=== PATIENT | male | born 1935 | race Caucasian/White ===

== ENCOUNTER 2019-09-19 00:52 | Outpatient (CLI) | payer MEDICARE, SELFPAY ==
[2019-09-19 19:08] LABS: SARS-CoV-2 RNA PCR Negative
== END 2019-09-19 00:53 | disposition home or self-care (01) ==
LOC: ANHCOVIDDT 00:52
PROVIDERS: PCP Family Medicine Adolescent Medicine; Visit Provider Internal Medicine Gastroenterology
DX: Z01.812 Encounter for preprocedural laboratory examination (principal); Z11.59 Encounter for screening for other viral diseases
CPT/HCPCS: 87635; C9803; U0003

== ENCOUNTER 2019-09-21 01:31 | Day surgery (SDC) | payer MEDICARE, SELFPAY ==
[2019-09-14 12:25] VITALS: BMI 30.5
[2019-09-21 06:59] VITALS: BP 126/64; PULSE 64; RESP 18; TEMP 36.7; O2SAT 98; BMI 31.0
[2019-09-21] MEDS: LACTATED RINGERS 1,000 ML 150 ML IV CONT (07:13)
--- NOTE | 2019-09-21 07:29 | WPDANESEPPF ---
Anes - Initial Pre Proc Eval Procedure: Operation Date: 09/21/19 08:00 Proposed Procedures p Screening Colonoscopy - Stiven Prince MD Date/Time: 09/21/19 07:29 Surgeon: Stiven Prince MD Pre Op Diagnosis: hx colon polyps, faily hx colon CA Patient Data Age: 84 Gender: M Height: 6 ft 1 in Weight: 106.7 kg Last Vital Signs Temp 36.7 C 09/21/19 06:59 Pulse 64 09/21/19 06:59 Resp 18 09/21/19 06:59 BP 126/64 09/21/19 06:59 Pulse Ox 98 09/21/19 06:59 Allergies Allergy/AdvReac Type Severity Reaction Status Date / Time No Known Allergies Allergy Verified 09/21/19 06:56 Home Medications Medication Instructions Recorded Confirmed Type alpha lipoic acid (bulk) [Lipoic ea MISCELLANEOUS 09/14/19 History Acid] ascorbic acid (vitamin C) 1 g PO DAILY 09/14/19 09/21/19 History coenzyme Q10 [CoQ-10] 100 mg PO DAILY 09/14/19 09/21/19 History furosemide 40 mg PO DAILY 09/14/19 09/21/19 History indapamide 2.5 mg PO DAILY 09/14/19 09/21/19 History magnesium oxide-Mg AA chelate cap PO 09/14/19 History [Magnesium (oxide/AA chelate)] mecobalamin (vitamin B12) mcg PO 09/14/19 History potassium chloride 10 meq PO DAILY 09/14/19 09/21/19 History pregabalin 50 mg PO TID 09/14/19 09/21/19 History pyridoxine (vitamin B6) 250 mg PO DAILY 09/14/19 09/21/19 History trazodone 50 mg PO HS 09/14/19 09/21/19 History Patient hx anesthesia problems: none Family hx anesthesia problems: none PMFSH Past Medical History Medical History Anxiety Bladder cancer Prostate cancer Family History Family History Father Family history of malignant neoplasm Other Diabetes mellitus Hypertension Social History Social History Smoking status: Never smoker Alcohol intake: current Anes - Eval Final PreProcedure Day of Procedure 09/21/19 07:29 Patient weight: obese Heart: regular rate and rhythm Lungs: clear to auscultation Airway: Mallampati scale class II Neurological: alert and oriented Last oral intake: >/= 8 hours ASA classification: III Emergent: no Anesthetic plan: proceed Anesthesia type and monitoring: general GIVS and standard monitoring Informed Consent: The patient's anesthetic plan and its attendant risks and benefits were discussed with the patient/family/POA. Questions were solicited and answers provided to the satisfaction of the patient/family/POA.
--- NOTE | 2019-09-21 07:57 | WPDGICN ---
Assessment and Plan Assessment and plan (1) History of colon polyps: Code(s): Z86.010 - Personal history of colonic polyps Status: Acute Assessment and Plan: Because of patient's own prior history of colon polyps as well as family history of colon cancer in his mother screening colonoscopy is advised now and 5 years if he remains healthy. (2) Family history of colon cancer in mother: Code(s): Z80.0 - Family history of malignant neoplasm of digestive organs Status: Acute GI Consult Note Consult date/time: 09/21/19 07:57 HPI: Trevor Moctezuma is a 84 year old male seen in evaluation at the request of Dr Welch. Patient presents for screening colonoscopy. His current weight appetite bowel movements are normal. He does have a prior history of colon polyps. Family history is significant that his mother has had colon cancer. Patient presents today for colonoscopy. He denies any blood in his stools. He denies abdominal pain. Review of Systems Review of Systems: All systems reviewed & are unremarkable except as noted in HPI and below PMFSH Past Medical History Medical History Anxiety Bladder cancer Prostate cancer Family History Family History Father Family history of malignant neoplasm Other Diabetes mellitus Hypertension Social History Social History Smoking status: Never smoker Alcohol intake: current Meds Home Medications and Allergies Home Medications Medication Instructions Recorded Confirmed Type alpha lipoic acid (bulk) [Lipoic ea MISCELLANEOUS 09/14/19 History Acid] ascorbic acid (vitamin C) 1 g PO DAILY 09/14/19 09/21/19 History coenzyme Q10 [CoQ-10] 100 mg PO DAILY 09/14/19 09/21/19 History furosemide 40 mg PO DAILY 09/14/19 09/21/19 History indapamide 2.5 mg PO DAILY 09/14/19 09/21/19 History magnesium oxide-Mg AA chelate cap PO 09/14/19 History [Magnesium (oxide/AA chelate)] mecobalamin (vitamin B12) mcg PO 09/14/19 History potassium chloride 10 meq PO DAILY 09/14/19 09/21/19 History pregabalin 50 mg PO TID 09/14/19 09/21/19 History pyridoxine (vitamin B6) 250 mg PO DAILY 09/14/19 09/21/19 History trazodone 50 mg PO HS 09/14/19 09/21/19 History Allergies Allergy/AdvReac Type Severity Reaction Status Date / Time No Known Allergies Allergy Verified 09/21/19 06:56 Vital Signs Vital Signs - 24 hr 09/21/19 06:59 Temperature 98.0 F Pulse Rate 64 Respiratory Rate 18 Blood Pressure 126/64 Pulse Oximetry 98 Exam Narrative: Exam Narrative: Physical exam reveals patient to be alert. Vital signs stable. HEENT exam unremarkable. Lungs are clear to auscultation and to percussion. Heart is without murmur or extra sounds. Abdominal exam bowel sounds are present soft nontender with no organomegaly. Digital external rectal exam is normal.
[2019-09-21 08:32] VITALS: BP 104/60; PULSE 51; RESP 18; O2SAT 97
[2019-09-21 08:42] VITALS: BP 121/67; PULSE 55; RESP 18; O2SAT 97
[2019-09-21 08:52] VITALS: BP 129/76; PULSE 53; RESP 18; O2SAT 97
== END 2019-09-21 09:30 | disposition home or self-care (01) ==
PROVIDERS: PCP Family Medicine Adolescent Medicine; Visit Provider Internal Medicine Gastroenterology
PROC: 0DJD8ZZ Inspection of Lower Intestinal Tract, Via Natural or Artificial Opening Endoscopic (ICD-10-PCS; CPT 45378; principal; 2019-09-21 08:00)
DX: Z12.11 Encounter for screening for malignant neoplasm of colon (principal); D12.2 Benign neoplasm of ascending colon; K63.5 Polyp of colon; K57.30 Diverticulosis of large intestine without perforation or abscess without bleeding; K64.8 Other hemorrhoids; Z80.0 Family history of malignant neoplasm of digestive organs; F41.9 Anxiety disorder, unspecified; Z85.46 Personal history of malignant neoplasm of prostate; Z85.51 Personal history of malignant neoplasm of bladder; E66.9 Obesity, unspecified; Z68.31 Body mass index [BMI] 31.0-31.9, adult
CPT/HCPCS: 45385; 87635; 88305; C9803; J2001; J2704; J7120; U0003

== ENCOUNTER → 2020-10-29 03:30 | Outpatient (CLI) | payer MEDICARE, SELFPAY ==
[2020-10-29 19:41] LABS: SARS-CoV-2 RNA PCR Positive
== END ==
PROVIDERS: PCP Family Medicine Adolescent Medicine; Visit Provider Physician Assistant
DX: U07.1 COVID-19 (principal)
CPT/HCPCS: C9803; U0003; U0005

== ENCOUNTER 2020-11-07 11:56 | Observation (INO) | payer MEDICARE, SELFPAY ==
[2020-11-07] VITALS (25 sets, daily range): BP systolic 105–147; BP diastolic 57–80; PULSE 58–88; RESP 14–20; TEMP 36.4–36.9; O2SAT 93–100; BMI 28.5
--- NOTE | ~2020-11-07 | CT_ITS ---
EXAMINATION: CTA chest PE protocol DATE: 11/07/2020 14:29 INDICATION: Shortness of breath. Elevated d-dimer. TECHNIQUE: Computed tomography (CT) pulmonary angiogram of the chest was performed with 100 mL Omnipa que-350 intravenous contrast. Additional 3D reconstructions utilizing coronal maximum intensity proje ction (MIP) were performed. Automated exposure control and iterative reconstruction technique were em ployed. The dose-length product was 618.31 mGy-cm. COMPARISON: None FINDINGS: Excellent contrast opacification of the pulmonary arteries. There is mild streak artifact from dense contrast in the superior vena cava and right atrium. Mild scattered respiratory motion artifact which does not significantly limit evaluation. No pulmonary embolism. Mild emphysema. Mild dependent atele ctasis in bilateral lower lobes. Additional mild linear discoid atelectasis scattered throughout both lungs. Small calcified nodules along the right minor and major fissures consistent with old granulom atous disease. No pneumonia, pulmonary edema or pleural effusion. Heart size is normal. No pericardia l effusion. Atherosclerotic coronary artery calcification. Thoracic aorta is normal in caliber with n o dissection. No pathologically enlarged thoracic lymphadenopathy. Small sliding-type hiatal hernia. Chronic T7 compression fracture with moderate thoracic spondylosis. Spinal stimulator lead at the pos terior aspect of the central canal the midthoracic spine at the level of T6-T8. IMPRESSION: 1. No pulmonary embolism. 2. Mild dependent and scattered discoid atelectasis throughout both lungs. No other acute cardiopulmo nary disease. Reviewed, dictated and finalized at location A. IMPRESSION: 1. No pulmonary embolism. 2. Mild dependent and scattered discoid atelectasis throughout both lungs. No o ther acute cardiopulmonary disease.
--- NOTE | ~2020-11-07 | CT_ITS ---
EXAMINATION: CT brain wo con INDICATION: Dizziness COMPARISON: None TECHNIQUE: Standard unenhanced head CT. The dose-length product (DLP) was 681.00 mGy-cm. The mA was a djusted according to patient size. Iterative reconstruction technique was employed. FINDINGS: There is no acute intraparenchymal hemorrhage. No evidence of acute infarction. There is an approximately 1.5 cm area of calcification left cerebellum. There is mild periventricular and subcor tical hypodensity probably related to small vessel ischemic disease. There is mild prominence of the sulci and ventricles related to cerebral atrophy. Intracranial calcified cerebral atherosclerosis is noted. There are no extra-axial collections. There is no mass effect or midline shift. Changes in the globes are likely from ocular lens surgery. There is mild mucosal thickening of the paranasal sinuse s. IMPRESSION: 1. Calcification in the left cerebellum which could be dystrophic possibly related to a cavernoma. Du e to presence of neurostimulator device, further evaluation by CT of the brain with contrast is recom mended. 2. Age related findings. Reviewed, dictated and finalized at location A. IMPRESSION: 1. Calcification in the left cerebellum which could be dystrophic possibly rela real to a cavernoma. Due to presence of neurostimulator device, further evaluati on by CT of the brain with contrast is recommended. 2. Age related findings.
--- NOTE | ~2020-11-07 | XR_ITS ---
EXAMINATION: XR chest 1V portable INDICATION: Shortness of breath, COVID positive TECHNIQUE: Portable AP chest at 1238 hours COMPARISON: None available FINDINGS: There are minimal airspace opacities of the lung bases. No pleural effusion or pneumothorax is identified. The cardiomediastinal silhouette is normal. Neurostimulator leads project in the midt horacic spine. IMPRESSION: 1. Minimal airspace opacities of the lung bases, consistent with atelectasis versus pneumonia. Reviewed, dictated and finalized at location A. IMPRESSION: 1. Minimal airspace opacities of the lung bases, consistent with atelectasis ve rsus pneumonia.
--- NOTE | 2020-11-07 12:06 | ECG_ITS ---
Measurements Intervals [place] Rate: 84 P: 27 NM: 222 QRS: -30 QRSD: 133 T: 16 QT: 393 QTc: 466 Interpretive Statements SINUS RHYTHM WITH FIRST DEGREE AV BLOCK RIGHT BUNDLE BRANCH BLOCK BASELINE ARTIFACT- I, II, III, AVR, AVL, AVF, V3-V6 ABNORMAL ECG Electronically Signed On 11-07-2020 14:24:12 CDT by Guy Oates D.O.
[2020-11-07 12:28] LABS: Basophils Percent Auto 0.5 % (0.2-1.2); Eosinophils Percent Auto 0.2 % (0-4.4); Hematocrit 37.2 % (42.0-52.0); Hemoglobin 12.4 g/dL (14.0-18.0); Immature Granulocyte Absolute 0.17 K/mm3 (0.00-0.031); Immature Granulocyte Percent A 4.1 % (0-0.5); Lymphocytes Absolute Auto 0.69 K/mm3 (0.9-3.2); Lymphocytes Percent Auto 16.6 % (18.3-44.2); Mean Corpuscular HGB Conc 33.3 g/dl (32-36); Mean Corpuscular Volume 95.9 fl (80-100); Mean Platelet Volume 9.8 fl (7.4-10.4); Monocytes Absolute Auto 0.4 K/mm3 (0.1-0.6); Monocytes Percent Auto 8.4 % (2.6-8.5); Neutrophils Absolute Auto 2.9 K/mm3 (1.3-6.7); Neutrophils Percent Auto 70.2 % (45.5-73.1); Platelet Count Result 135 k/mm3 (150-375); Red Blood Count 3.88 M/mm3 (4.6-6.20); Red Cell Distribution Width 12.6 % (11.5-14.5); White Blood Count 4.2 K/mm3 (4.5-10.0)
[2020-11-07 12:51] LABS: Anion Gap 14 mmol/L (8-16); Blood Urea Nitrogen 17 mg/dL (9-20); Carbon Dioxide 24 mmol/L (22-30); Chloride 97 mmol/L (98-107); Estimated CRCL calculation 57 ml/min; Estimated Glomerular Filt Rate > 60; Glucose 104 mg/dL (65-110); Potassium 4.1 mmol/L (3.4-5.0); Sodium 135 mmol/L (137-145)
--- NOTE | 2020-11-07 12:59 | ED.SOB ---
HPI - SOB/Dyspnea General Chief Complaint: Shortness of Breath/Dyspnea Stated Complaint: Dizzy/Feels terrible COVID + 2 weeks ago Time Seen by Provider: 11/07/20 12:41 Source: patient Mode of arrival: ambulatory Limitations: no limitations History of Present Illness HPI Narrative: Patient is an 85-year-old male complain of left-sided chest pain, 6 out of 10, sharp, nonradiating accompanied by dizziness started today. Patient denies any shortness of breath, abdominal pain, nausea, vomiting, diaphoresis, fever or chills. Patient states that he was recently cleared from Covid, was diagnosed more than a week ago. Patient does admit to having his 2 Pfizer vaccine back in April and May. Related Data Home Medications Medication Instructions Recorded Confirmed alpha lipoic acid (bulk) [Lipoic ea MISCELLANEOUS 09/14/19 Acid] ascorbic acid (vitamin C) 1 g PO DAILY 09/14/19 09/21/19 coenzyme Q10 [CoQ-10] 100 mg PO DAILY 09/14/19 09/21/19 furosemide 40 mg PO DAILY 09/14/19 09/21/19 indapamide 2.5 mg PO DAILY 09/14/19 09/21/19 magnesium oxide-Mg AA chelate cap PO 09/14/19 [Magnesium (oxide/AA chelate)] mecobalamin (vitamin B12) mcg PO 09/14/19 potassium chloride 10 meq PO DAILY 09/14/19 09/21/19 pregabalin 50 mg PO TID 09/14/19 09/21/19 pyridoxine (vitamin B6) 250 mg PO DAILY 09/14/19 09/21/19 trazodone 50 mg PO HS 09/14/19 09/21/19 Allergies Allergy/AdvReac Type Severity Reaction Status Date / Time No Known Allergies Allergy Verified 11/07/20 13:53 Review of Systems Review of Systems: All systems reviewed & are unremarkable except as noted in HPI and below Constitutional: Constitutional: Denies body ache(s), Denies chills, Denies excessive sweating, Denies fever(s), Denies headache(s), Denies lethargy, Denies malaise and Denies weight loss Eyes: Eyes: Denies blurry vision, Denies change in vision and Denies loss of vision ENT: Denies dizziness, Denies ear discharge, Denies headache(s), Denies lip swelling, Denies epistaxis, Denies nasal congestion, Denies neck pain, Denies throat swelling and Denies tongue swelling Cardiovascular: Cardiovascular: Denies diaphoresis, Denies rapid heart rate, Denies edema, Denies irregular heart rhythm, Denies lightheadedness and Denies palpitations Respiratory: Respiratory: Denies chest congestion and Denies hemoptysis Gastrointestinal: Gastrointestinal: Denies abdominal pain, Denies melena, Denies hematochezia, Denies diarrhea, Denies nausea, Denies vomiting and Denies hematemesis Musculoskeletal: Musculoskeletal: Denies abnormal gait, Denies deformity, Denies joint swelling, Denies limited range of motion, Denies neck pain and Denies numbness Neurologic: Denies Abnormal speech present, Denies abnormal gait, Denies confusion, Denies headache(s), Denies focal weakness, Denies loss of vision, Denies numbness, Denies Other visual disturbances, Denies Sensory deficit (Neuro) and Denies weakness Psychiatric: Psychiatric: Denies confusion, Denies depression, Denies auditory hallucinations, Denies homicidal ideation and Denies suicidal ideation Endocrine: Endocrine: Denies cold intolerance, Denies excessive sweating, Denies fatigue, Denies heat intolerance and Denies palpitations Hematologic/Lymphatic: Hematologic/Lymphatic: Denies easy bleeding and Denies easy bruising Allergic/Immunologic: Allergic/Immunologic: Denies lip swelling, Denies throat swelling and Denies tongue swelling PMFSH Past Medical History Medical History (Updated 11/07/20 @ 15:36 by Joey Tucker MD) Anxiety Bladder cancer Prostate cancer Family History Family History Father Family history of malignant neoplasm Other Diabetes mellitus Hypertension Social History Social History Smoking status: Never smoker Alcohol intake: current Exam Const: General: cooperative, comfortable, no
[2020-11-07 13:46] LABS: D Dimer 0.54 ug/mL (<0.48)
[2020-11-07] MEDS: ASPIRIN 81 MG CHEWABLE TABLET 324 MG PO (14:08)
[2020-11-07 14:21] LABS: NT Pro B Type Natriuretic Pept 374 pg/mL (5-100); Troponin I < 0.012 ng/mL (0.000-0.034)
--- NOTE | 2020-11-07 18:01 | PC.NURSE ---
Dinner tray ordered for pt.
--- NOTE | 2020-11-07 19:55 | PM.IMHP ---
H&P: HPI History of Present Illness Date/Time: 11/07/20 19:55 Chief Complaint: Chest pain Narrative: This is an 85-year-old male with past medical history significant for hypertension, generalized anxiety bladder cancer, prostate cancer, COVID tested positive in the middle of October, patient is the main caregiver of his which is end-stage Alzheimer's dementia. Patient presented today to the emergency room due to pain on the left side of her his rib cage worse with inspiration a states that it feels tight when he takes a deep breath he has had some cough he has been getting increasingly short of breath with exertion and has been having generalized malaise his appetite is good though he denies any PND any orthopnea any leg swelling, any syncope, or near syncope ,no palpitations, chest pain is nonradiating ,he denies any fevers, chills or rigors ,no nausea ,no vomiting just had a diarrhea. Preliminary workup was significant for chest x-ray with infiltrates at the lung bases. Rest of preliminary workup has been essentially nonrevealing including CT angiogram negative for pulmonary embolism. Review of Systems Review of Systems: Shortness of breath at exertion, fatigue, left-sided chest pain Constitutional: Constitutional: Denies chills, Reports fatigue, Denies fever(s), Reports lethargy, Reports malaise, Denies night sweats and Reports weakness Eyes: Eyes: Denies change in vision ENT: Denies dysphagia, Denies dizziness, Denies nasal congestion, Denies nasal discharge, Denies nasal obstruction and Denies odynophagia Cardiovascular: Cardiovascular: Denies irregular heart rhythm, Denies claudication, Denies leg edema, Denies radiating jaw, neck or arm pain, Denies palpitations, Reports dyspnea and Reports dyspnea on exertion Respiratory: Respiratory: Denies change in phlegm color, Denies cough, Denies excessive phlegm production, Reports dyspnea and Denies wheezing Gastrointestinal: Gastrointestinal: Denies abdominal pain, Reports diarrhea, Denies nausea and Denies vomiting Genitourinary: Genitourinary: Reports no additional male genitourinary complaints Musculoskeletal: Musculoskeletal: Reports no additional musculoskeletal complaints Integumentary/Breasts: Skin/Breast: Reports system reviewed and no additional complaints, except as docu Neurologic: Reports system reviewed and no additional complaints, except as documented Psychiatric: Psychiatric: Reports no additional psychiatric complaints Endocrine: Endocrine: Reports no additional endocrine complaints Hematologic/Lymphatic: Hematologic/Lymphatic: Reports no additional hematologic/lymphatic complaints Allergic/Immunologic: Allergic/Immunologic: Reports no additional allergic/immunologic complaints [facility] Past Medical History Medical History (Updated 11/08/20 @ 01:03 by Andriy Quinones MD) Anxiety Bladder cancer Prostate cancer Family History Family History Father Family history of malignant neoplasm Other Diabetes mellitus Hypertension Social History Social History Smoking status: Never smoker Alcohol intake: current Drinks per week: 6 Substance use: never Substance use type: does not use Spiritual care concerns: No Meds Home Medications and Allergies Home Medications Medication Instructions Recorded Confirmed Type ascorbic acid (vitamin C) 5,000 mg PO DAILY 09/14/19 11/07/20 History coenzyme Q10 [CoQ-10] 200 mg PO DAILY 09/14/19 11/07/20 History furosemide 40 mg PO DAILY 09/14/19 11/07/20 History mecobalamin (vitamin B12) 5,000 mcg PO DAILY 09/14/19 11/07/20 History potassium chloride 30 meq PO BID 09/14/19 11/07/20 History pregabalin 50 mg PO TID 09/14/19 11/07/20 History pyridoxine (vitamin B6) 250 mg PO DAILY 09/14/19 11/07/20 History trazodone 50 mg PO HS 09/14/19 11/07/20 History alpha lipoic acid [Lipoic Acid] 600 mg PO TI
--- NOTE | 2020-11-07 20:17 | PC.NURSE ---
This patient, Trevor Vivek Pacewic, was admitted to IMU Room 212-. Patient/family oriented to hospital policies and general routines including ID bracelet, bed and alarms, visiting hours, pain management, procedures, bathroom and other care routines, personal items, smoking policy, room service/diet, and visiting hours. Information on how to activate the Rapid Response Team has been discussed. Patient/Family are encouraged to report perceived risks to care and to ask questions if they do not understand what they are told or what they should do.
[2020-11-07 20:43] LABS: Troponin I < 0.012 ng/mL (0.000-0.034)
[2020-11-07 23:53] LABS: Troponin I < 0.012 ng/mL (0.000-0.034)
[2020-11-08] VITALS (17 sets, daily range): BP systolic 90–120; BP diastolic 43–63; PULSE 57–70; RESP 16–20; TEMP 36.3–36.4; O2SAT 94–100
[2020-11-08] MEDS: traZODone HCL 50 MG TABLET PO (01:13)
[2020-11-08] MEDS: POTASSIUM CHLORIDE 10 MEQ TABLET.ER 30 MEQ PO (08:21)
[2020-11-08] MEDS: PYRIDOXINE HCL 50 MG TABLET 250 MG PO (08:21)
[2020-11-08] MEDS: MAGNESIUM OXIDE 400 MG TABLET PO (08:21)
[2020-11-08] MEDS: CYANOCOBALAMIN 1,000 MCG TABLET 5000 MCG PO (08:21)
[2020-11-08] MEDS: HEPARIN SODIUM 5,000 UNITS/ML VIAL 5000 UNITS SUB-Q (08:21)
[2020-11-08] MEDS: ASCORBIC ACID 500 MG TABLET 5000 MG PO (08:22)
[2020-11-08] MEDS: PREGABALIN (*CRX) 50 MG CAPSULE PO ×2 (08:24→14:06)
[2020-11-08] MEDS: SODIUM CHLORIDE 0.9% IV 500 ML IV CONT (10:51)
[2020-11-08 13:07] LABS: Magnesium 2.1 mg/dL (1.6-2.3)
[2020-11-08] MEDS: ALBUTEROL SULFATE NEB 2.5 MG/0.5 ML INH INHALATION (14:22)
--- NOTE | 2020-11-08 15:04 | PM.DS ---
DS: Admitting Diagnosis Admitting Diagnosis Lightheadedness/fatigue DS: Discharge Diagnosis Discharge Diagnosis (1) COVID-19: Code(s): U07.1 - COVID-19 Status: Acute Assessment and Plan: The patient is an 85-year-old man with a history of hypertension, bladder cancer, prostate cancer, who presented emergency room with generalized weakness and lightheadedness prior to arrival. The patient was diagnosed with COVID-19 on October 30, 2019 and he has been quarantined in his house during that amount of time. He states he feels very fatigued because he has been helping his who has end-stage Alzheimer's in usually they have a home health agency come daily to help him. But since the been in quarantine he has had to do all himself. Then yesterday he went to stand up and felt lightheaded like he was going to pass out. His daughter was concerned and told him to come to the emergency room for further evaluation and monitoring. Initial labs showed afebrile, non tachycardic, normal respirations and oxygenation on room air, stable blood pressure 128/66. Initial labs show mild pancytopenia, most likely secondary to acute COVID infection. Elevated D-dimer. Slight hyponatremia at 135. BNP normal at 374 given his age. Troponin negative x3. Normal magnesium level. Chest x-ray showed minimal airspace opacity of the lung bases, consistent with atelectasis versus pneumonia. CT head showed Calcification in the left cerebellum which could be dystrophic possibly related to a cavernoma. Due to presence of neurostimulator device, further evaluation by CT of the brain with contrast is recommended. Age related findings. CTA chest showed no pulmonary embolism, Mild dependent and scattered discoid atelectasis throughout both lungs. No other acute cardiopulmonary disease. The patient was admitted to hospital for further evaluation observation. Due to his lightheadedness I checked his orthostatics which showed low blood pressure. I gave him 500 cc of IV fluids with improvement of his symptoms. The patient had been walking around, asymptomatic and otherwise stable for discharge at this time. I will have him hold his triamterene hydrochlorothiazide diuretic because of his low blood pressures and dehydration. Otherwise check his blood pressure twice daily. Follow-up primary care within 1 week. Return to ER warnings given. Patient understands agrees the plan all questions answered. (2) Generalized weakness: Code(s): R53.1 - Weakness Status: Acute (3) HTN (hypertension): Code(s): I10 - Essential (primary) hypertension Status: Acute (4) Lightheadedness: Code(s): R42 - Dizziness and giddiness Status: Acute DS: Summary Hospital Course Hospital Course: See above Status at Discharge Cognitive/behavioral status at discharge: Stable, improved. Time Spent with Patient Time attestation: Total time spent providing and/or coordinating discharge services: 42 Time spent: Greater than 30 minutes Exam Narrative: General: 85-year-old man laying in bed resting. Easily arousable and sits up to talk to me during examination. Appears comfortable. In no acute distress. Skin: No jaundice or cyanosis. Good skin turgor. Neck: Full range of motion. Supple. Respiratory: Lungs are clear to auscultation bilaterally. No bony chest wall tenderness. Cardiovascular: The heart has a regular rate and rhythm without murmur. Lower extremities: No lower extremity edema. Distal pulses are easily palpated. No calf tenderness to palpation. Gastrointestinal: The abdomen is soft, nontender and nondistended with active bowel sounds. Psychiatric: Lucid and oriented. Memory intact. Neurologic: No focal deficits. Speech is clear. No facial drooping. DS: Data Data Completed and Pending Labs on day of discharge: Labs from last 24 hours 11/08/20 11/07/20 11/07/20 10:39 2
== END 2020-11-08 15:48 | disposition home or self-care (01) ==
LOC: ANHED 16:26 → ANHIMU 17:16
PROVIDERS: Physician Assistant; Admitting Provider Internal Medicine; Emergency Provider Emergency Medicine; PCP Family Medicine Adolescent Medicine; Visit Provider Internal Medicine
DX: U07.1 COVID-19 (principal); J12.82 Pneumonia due to coronavirus disease 2019; R53.1 Weakness; R42 Dizziness and giddiness; I10 Essential (primary) hypertension; F41.1 Generalized anxiety disorder; Z85.46 Personal history of malignant neoplasm of prostate; Z85.51 Personal history of malignant neoplasm of bladder
CPT/HCPCS: 36415; 70450; 71045; 71275; 80048; 83735; 83880; 84484; 85025; 85380; 87040; 93005; 94640; 96361; 96365; 96367; 96372; 97161; 99285; A9270; G0378; J0456; J0696; J1644; J7040; Q9967

== ENCOUNTER 2021-02-06 20:57 | Emergency (ER) | payer MEDICARE, SELFPAY ==
[2021-02-06 20:56] VITALS: BP 183/101; PULSE 45; RESP 18; O2SAT 88
--- NOTE | 2021-02-06 20:56 | PC.NURSE ---
2055- Time of Arrival, BP 183/101. Pt vomiting, complaining of 10/10 chest pain 2099- 8 mg Zofran administered per ERP Tucker VRBO. 2101- PEA recognized, BVM respirations & compressions initiated 2102- 1 mg epi at this time, AED applied 2103- pulse check indicates ROSC, BP 123/85 2104- pulseless V tach identified, compressions resumed, 18 gauge IV placed left hand, 1 mg epi administered 2106- shock delivered 200 J 2107- pulse check indicates ROSC, 20 mg Etomidate administered 2108- ETT size 8 placed measuring 24 at teeth 2110- PEA recognized, compressions resumed, epi 1 mg administered 2112- epi 1 mg administered 2113- pulse check indicates PEA, sodium bicarb administered 2115- automatic BP reads 146/85, epi 1 mg administered 2119- epi 1 mg administered 2120- 1 mg atropine administered, pulse check indicates ROSC 2122- PEA identified, 1 mg epi administered 2125- pulse check, 1 mg epi administered 2127- ROSC identified 2128- pt rhythm PEA, 1 mg epi administered 2132- time of
--- NOTE | 2021-02-06 21:17 | ECG_ITS ---
Measurements Intervals [place] Rate: 54 P: NE: 0 QRS: 27 QRSD: 190 T: 77 QT: 419 QTc: 400 Interpretive Statements ATRIAL FIBRILLATION WITH SLOW VENTRICULAR RESPONSE RIGHT BUNDLE BRANCH BLOCK BASELINE ARTIFACT- I, II, III, AVR, AVL, AVF, V1-V6 ABNORMAL ECG Electronically Signed On 02-12-2021 12:21:38 ENGINE INSTALLER by Guy Oates D.O.
--- NOTE | 2021-02-06 21:30 | ECG_ITS ---
Measurements Intervals [place] Rate: 42 P: -72 NV: 154 QRS: 76 QRSD: 42 T: 0 QT: 188 QTc: 157 Interpretive Statements JUNCTIONAL RHYTHM RIGHT BUNDLE BRANCH BLOCK LOW QRS VOLTAGE- PRECORDIAL LEADS BASELINE ARTIFACT- I, II, III, AVR, AVL, AVF, V1-V6 ABNORMAL ECG Electronically Signed On 02-12-2021 12:22:55 PRIVACY COMPLIANCE MANAGER by Guy Oates D.O.
[2021-02-06 21:35] LABS: Glucose Point of Care 92 mg/dl (65-105)
--- NOTE | 2021-02-06 21:40 | PC.NURSE ---
Ok to pull tubes and let family see him.
--- NOTE | 2021-02-06 21:40 | ED.CPR ---
HPI - CPR General Chief Complaint: Cardiac Arrest/CPR Stated Complaint: cardiac arrest Time Seen by Provider: 02/06/21 21:25 Source: EMS Mode of arrival: EMS Limitations: clinical condition History of Present Illness HPI narrative: Patient is an 85-year-old male brought in by EMS in cardiorespiratory arrest. Per EMS patient was complaining of chest pain prior to arrival when they arrived he was unresponsive, went into V. fib arrest, CPR started, was given three rounds of epi prior to arrival along with continuous cardiopulmonary resuscitation able to regain ROSC, total downtime prior to arrival to the emergency room was approx 15 minutes. After a few minutes in the ER pt went into cardiorespiratory arrest again, ACLS protocol started. Associated symptoms: chest pain Treatments prior to arrival: BMV, defibrillated shocks # (1) and epinephrine mgs # (2) Related Data Home Medications Medication Instructions Recorded Confirmed ascorbic acid (vitamin C) 5,000 mg PO DAILY 09/14/19 11/07/20 coenzyme Q10 [CoQ-10] 200 mg PO DAILY 09/14/19 11/07/20 furosemide 40 mg PO DAILY 09/14/19 11/07/20 mecobalamin (vitamin B12) 5,000 mcg PO DAILY 09/14/19 11/07/20 potassium chloride 30 meq PO BID 09/14/19 11/07/20 pregabalin 50 mg PO TID 09/14/19 11/07/20 pyridoxine (vitamin B6) 250 mg PO DAILY 09/14/19 11/07/20 trazodone 50 mg PO HS 09/14/19 11/07/20 alpha lipoic acid 600 mg PO TID 11/07/20 11/07/20 magnesium 400 mg PO DAILY 11/07/20 11/07/20 Allergies Allergy/AdvReac Type Severity Reaction Status Date / Time No Known Allergies Allergy Verified 11/07/20 13:53 Review of Systems Review of Systems: ROS unobtainable: Yes unobtainable due to mental status PMFSH Past Medical History Medical History (Updated 02/06/21 @ 21:54 by Joey Tucker MD) Anxiety Bladder cancer Prostate cancer Family History Family History Father Family history of malignant neoplasm Other Diabetes mellitus Hypertension Social History Social History Smoking status: Never smoker Alcohol intake: current Drinks per week: 6 Substance use: never Substance use type: does not use Spiritual care concerns: No Exam Narrative: Patient unresponsive Agonal respiration Bradycardia HENMT: Head: normal to inspection Eyes: Conjunctivae: conjunctivae normal Pupils: Equal, round and reactive pupils present Resp: Other: Agonal respiration Cardio: Other: Bradycardia, faint pulse GI: GI Palp: Yes Soft to palpation Skin: General skin exam: normal color Neuro: Other: Unresponsive Extrem: General: normal to inspection Procedures Intubation Intubation #1: Intubation Date: 02/06/21 Intubation Time: 21:00 Time out performed: Yes sedative: Etomidate Laryngoscope: fiber optic video scope Tube Size (cm): 8.0 Method of Intubation: orotracheal Number of Attempts: 1 Tube Secured Depth (cm): 24 Tube Secured Location: lips Tube Placement Confirmation: visualized tube passing through cords, equal breath sounds bilaterally, no breath sounds over epigastrium and confirmation by capnometry Patient Tolerated Procedure: well Intubation Complications: none MDM - Cardiac Arrest/CPR MDM Narrative Medical decision making narrative: ACLS protocol started here in the emergency room, after approximately 33 minutes of continuous cardiopulmonary resuscitation was unable to gain ROSC. Total downtime approximately 45 minutes Time of 2133 Family present here in the emergency room informed of his Patient's PCP, Dr. Palma was also informed of his and will sign his certificate Differential Diagnosis Differential diagnosis: Likely acute respiratory failure, acute myocardial infarction and cardiac arrest Lab Data Labs: Lab Results 02/06/21
--- NOTE | 2021-02-06 21:45 | PC.NURSE ---
Janette @ [facility] Coroner notified @ [id number]
--- NOTE | 2021-02-06 21:47 | PC.NURSE ---
Ana Paula @ [facility] notified @ [id number]
--- NOTE | 2021-02-06 21:50 | PC.NURSE ---
[facility] referral number [id number]
[2021-02-06 22:23] VITALS: PULSE 0; RESP 0; O2SAT 0
--- NOTE | 2021-02-06 22:24 | PC.NURSE ---
[facility] [place] PER FAMILY REQUEST
--- NOTE | 2021-02-06 22:33 | PC.NURSE ---
PT MOVED TO [facility] AT THIS TIME.
--- NOTE | 2021-02-07 00:54 | PC.NURSE ---
[place] @ [facility] GOT CONSENT FROM FAMILY AND WILL BE IN TO RETRIEVE THE PATIENT SHORTLY.
--- NOTE | 2021-02-07 07:42 | PC.NURSE ---
[facility], spoke with Kia, she was made aware [facility] has released the pt. ( per Myah Parks RN). She will call back with an ETA>
== END 2021-02-06 22:23 | disposition expired ==
PROVIDERS: Emergency Provider Emergency Medicine; PCP Family Medicine Adolescent Medicine
DX: I46.9 Cardiac arrest, cause unspecified (principal); R09.2 Respiratory arrest; F41.9 Anxiety disorder, unspecified; Z85.51 Personal history of malignant neoplasm of bladder; Z85.46 Personal history of malignant neoplasm of prostate; Z79.899 Other long term (current) drug therapy
CPT/HCPCS: 31500; 82948; 92950; 93005; 96374; 99285; J0171; J0461